=== PATIENT | female | born 1995 | race American Indian/Alaskan Native ===

== ENCOUNTER 2016-10-23 15:31 | Emergency (ER) | payer MEDICAID ==
[2016-10-23 15:49] VITALS: BP 139/84
[2016-10-23] MEDS ORDERED: NORCO 7.5/325 PO ONE (16:22)
--- NOTE | 2016-10-23 16:27 | Emergency Department Report ---
ED ENT HPI - General Chief complaint: Sore Throat Stated complaint: POSS STREP THROAT/SWOLLEN TONSILS Time Seen by Provider: 10/23/16 16:21 Source: patient Mode of arrival: Ambulatory Limitations: No Limitations - History of Present Illness Initial comments: 20-year-old -[place] female comes in for complaint of nonproductive cough sore throat and chills swollen glands in her throat and sinus drainage since Saturday. Patient denies any fever he does admit to chills she does admit to taking [id number] pain relief and drinking tea without minimal relief. She complains of headache off and on. He has no past medical history currently takes no medication and has no known drug allergies. MD complaint: sore throat, difficulty swallowing - Related Data Previous Rx's Medication Instructions Recorded Last Taken Type Cephalexin [Keflex] 500 mg PO QID #40 capsule 10/23/16 Unknown Rx Ibuprofen [Motrin 800 MG tab] 800 mg PO Q8HR PRN #30 tablet 10/23/16 Unknown Rx Allergies Allergy/AdvReac Type Severity Reaction Status Date / Time No Known Allergies Allergy Verified 10/23/16 15:44 ED Dental HPI - General Chief complaint: Sore Throat Stated complaint: POSS STREP THROAT/SWOLLEN TONSILS Time Seen by Provider: 10/23/16 16:21 Source: patient Mode of arrival: Ambulatory Limitations: No Limitations - Related Data Previous Rx's Medication Instructions Recorded Last Taken Type Cephalexin [Keflex] 500 mg PO QID #40 capsule 10/23/16 Unknown Rx Ibuprofen [Motrin 800 MG tab] 800 mg PO Q8HR PRN #30 tablet 10/23/16 Unknown Rx Allergies Allergy/AdvReac Type Severity Reaction Status Date / Time No Known Allergies Allergy Verified 10/23/16 15:44 ED Review of Systems ROS: Stated complaint: POSS STREP THROAT/SWOLLEN TONSILS Other details as noted in HPI Constitutional: chills Eyes: denies: eye pain, eye discharge, vision change ENT: ear pain, throat pain Respiratory: cough Cardiovascular: denies: chest pain, palpitations Endocrine: no symptoms reported Gastrointestinal: denies: abdominal pain, nausea, diarrhea Genitourinary: denies: urgency, dysuria, discharge Musculoskeletal: denies: back pain, joint swelling, arthralgia Skin: denies: rash, lesions Neurological: headache Psychiatric: denies: anxiety, depression ED Past Medical Hx - Past Medical History Previous Medical History?: No Hx Hypertension: No Hx Diabetes: No Hx Deep Vein Thrombosis: No Hx Renal Disease: No Hx Sickle Cell Disease: No Hx Seizures: No Hx Asthma: No Hx COPD: No Hx HIV: No - Surgical History Past Surgical History?: No - Social History Smoking Status: Never Smoker Substance Use Type: Alcohol - Medications Home Medications: Home Medications Medication Instructions Recorded Confirmed Last Taken Type Cephalexin [Keflex] 500 mg PO QID #40 capsule 10/23/16 Unknown Rx Ibuprofen [Motrin 800 MG tab] 800 mg PO Q8HR PRN #30 tablet 10/23/16 Unknown Rx ED Physical Exam - General Limitations: No Limitations General appearance: alert, in no apparent distress - Head Head exam: Present: atraumatic, normocephalic - Eye Eye exam: Present: normal appearance, EOMI - ENT ENT exam: Present: mucous membranes moist - Expanded ENT Exam Expanded TM/Canal exam: Bulging: Right TM, Loss of Landmarks: Right TM Throat exam: Positive: tonsillar erythema, tonsillomegaly, tonsillar exudate - Neck Neck exam: Present: tenderness, full ROM, lymphadenopathy - Respiratory Respiratory exam: Present: normal lung sounds bilaterally - Cardiovascular Cardiovascular Exam: Present: tachycardia, normal heart sounds - GI/Abdominal GI/Abdominal exam: Present: soft, tenderness. Absent: distended - Neurological Exam Neurological exam: Present: alert, oriented X3 ED Course Vital Signs 10/23/16 15:45 Temperature 98.4 F Pulse Rate 104 H Respiratory 19 Rate Blood Pressure 139/84 O2 Sat by Pulse 100 Oximetry ED Medical Decision Making - Medical Decision Making Patient has been evaluated by this provider fast track. Evaluation of patient' s strep test was negative concerns for possible gonorrhea of the pharynx. Will treat patient with ceftriaxone and discharged her on Keflex 500 mg 1 tablet by mouth 4 times a day for 10 days. Also given patient a prescription for ibuprofen 800 mg 1 tablet by mouth 3 times a day when necessary for pain. Discussed the patient to call back in 3-7 days to follow-up on her cultures of her sore throat. Patient verbalized understanding. Critical care attestation.: If time is entered above; I have spent that time in minutes in the direct care of this critically ill patient, excluding procedure time. ED Disposition Clinical Impression: Sorethroat Disposition: DISCHARGED TO HOME OR SELFCARE Is pt being admited?: No Does the pt Need Aspirin: No Condition: Stable Instructions: Pharyngitis (ED) Prescriptions: Cephalexin [Keflex] 500 mg PO QID #40 capsule Ibuprofen [Motrin 800 MG tab] 800 mg PO Q8HR PRN #30 tablet PRN Reason: Pain Referrals: PRIMARY CARE, [Primary Care Provider] - 3-5 Days Forms: Work/School Release Form(ED)
[2016-10-23] MEDS ORDERED: XYLOCAINE 1% MPF 5 mL INFILTRATI ONE (17:44)
[2016-10-23] MEDS ORDERED: ROCEPHIN IM ONE (17:44)
== END 2016-10-23 18:35 | disposition home or self-care (01) ==
LOC: ED 15:31
DX: J02.9 Acute pharyngitis, unspecified (principal)
CPT/HCPCS: 87116; 87430; 96372; 99283; J0696

== ENCOUNTER 2016-11-23 16:09 | Emergency (ER) | payer MEDICAID ==
[2016-11-23 17:05] LABS: Basophils % (Auto) 0.3 % (0.0-1.8); Eosinophils % (Auto) 2.2 % (0.0-4.3); Hematocrit 35.9 % (30.3-42.9); Hemoglobin 11.2 gm/dl (10.1-14.3); Mean Corpuscular HGB Conc 31 % (30-34); Platelet Count 338 K/mm3 (140-440); Red Blood Count 5.35 M/mm3 (3.65-5.03); Red Cell Distribution Width 15.1 % (13.2-15.2); White Blood Count 5.7 K/mm3 (4.5-11.0)
[2016-11-23 17:11] LABS: Anion Gap 20 mmol/L; Blood Urea Nitrogen 13 mg/dL (7-17); Calcium 9.4 mg/dL (8.4-10.2); Carbon Dioxide 23 mmol/L (22-30); Chloride 101.3 mmol/L (98-107); Glucose 77 mg/dL (65-100); Potassium 4.3 mmol/L (3.6-5.0); Sodium 140 mmol/L (137-145)
[2016-11-23 17:15] LABS: Mean Corpuscular Hemoglobin 21 pg (28-32); Mean Corpuscular Volume 67 fl (79-97)
[2016-11-23] MEDS ORDERED: TORADOL IM ONE (20:19)
--- NOTE | 2016-11-23 20:23 | Emergency Department Report ---
HPI - General Chief Complaint: Chest Pain Time Seen by Provider: 11/23/16 18:28 - HPI HPI: The patient is a 21-year-old female presents for evaluation of chest pain. The patient reports left-sided chest pain since 9 AM, tightness like in quality, 5/ 10 in severity, exacerbated with movement of the upper body. She says that she has experienced similar chest pains on and off for greater than 3 months. The patient denies fever, neck pain, parasthesias, dyspnea, cough, hemoptysis, palpitations, dizziness, syncope, unilateral leg swelling, calf muscle pain. Patient also denies cocaine or other stimulant use, oral contraception use, history of DVT or PE, recent immobilization, or history of recent surgery or cancer. ED Past Medical Hx - Past Medical History Hx Hypertension: No Hx Diabetes: No Hx Deep Vein Thrombosis: No Hx Renal Disease: No Hx Sickle Cell Disease: No Hx Seizures: No Hx Asthma: No Hx COPD: No Hx HIV: No Additional medical history: OBESITY. ANEMIA - Surgical History Past Surgical History?: No - Social History Smoking Status: Never Smoker Substance Use Type: Alcohol - Medications Home Medications: Home Medications Medication Instructions Recorded Confirmed Last Taken Type traMADol [Ultram 50 MG tab] 50 mg PO Q6HR PRN #15 tablet 11/23/16 Unknown Rx ED Review of Systems ROS: Stated complaint: CHEST TIGHTNESS/LIGHT HEADED Other details as noted in HPI Constitutional: denies: fever ENT: denies: throat or neck pain Respiratory: denies: cough, shortness of breath Cardiovascular: reports chest pain Endocrine: denies unexplained weight loss or gain Gastrointestinal: denies: abdominal pain, nausea Genitourinary: denies: dysuria Musculoskeletal: denies: leg swelling Skin: denies: rash Neurological: denies: headache Hematological/Lymphatic: denies: easy bleeding or easy bruising Psych: denies sadness or hopelessness Physical Exam - Physical Exam Vital Signs: Vital Signs 11/23/16 11/23/16 11/23/16 16:23 18:56 18:59 Temperature 97.9 F Pulse Rate 92 H 89 Respiratory 15 16 16 Rate Blood Pressure 133/87 Blood Pressure 113/68 [Left] O2 Sat by Pulse 98 100 100 Oximetry Physical Exam: General: well-nourished, well-developed, no acute distress Head: Normocephalic, atraumatic Eyes: normal sclera ENT: Mucous membranes are pink and moist Neck: trachea midline, neck supple, No neck stiffness, no cervical adenopathy Respiratory: Breath sounds equal bilaterally, no wheezing, rales, or rhonchi Cardio: S1 and S2 present, no murmurs, rubs, gallops, capillary refill is brisk Abdomen: Normoactive bowel sounds, soft abdomen, no rigidity, no guarding or rebound tenderness Musc: No pitting edema Skin: No rash Neuro: no facial drooping, normal speech Psych: Normal affect ED Course Vital Signs 11/23/16 11/23/16 11/23/16 16:23 18:56 18:59 Temperature 97.9 F Pulse Rate 92 H 89 Respiratory 15 16 16 Rate Blood Pressure 133/87 Blood Pressure 113/68 [Left] O2 Sat by Pulse 98 100 100 Oximetry ED Medical Decision Making - Lab Data Result diagrams: 11/23/16 16:32 11/23/16 16:32 - Medical Decision Making The patient was seen and examined by myself. The patient is placed on a clinical research monitor and continuous pulse ox. On initial evaluation, the patient was found to be in no distress. EKG was negative for findings suggestive of acute cardiac infarct. Labs and imaging are obtained. The patient is given an IM dose of Toradol for her pain. Chest x-ray is negative for pneumothorax, focal consolidation, pulmonary vascular congestion, pleural effusion, or other obvious acute cardiopulmonary disease process. Lab results were non-concerning including levels of troponin, WBC, hemoglobin, hematocrit, electrolytes, renal function. The patient was reevaluated and reported that their symptoms were markedly improved. As the patient has a MANDY risk score less than 2, and a well 's score less than 2, the patient is at low risk of ACS or pulmonary emboli etiology of their symptoms. The patient is stable for discharge with outpatient follow-up. The patient is given follow-up and return instructions. The patient expressed understanding and agreed with the plan. The patient is discharged in stable condition. Critical care attestation.: If time is entered above; I have spent that time in minutes in the direct care of this critically ill patient, excluding procedure time. ED Disposition Clinical Impression: Acute chest pain Disposition: DISCHARGED TO HOME OR SELFCARE Is pt being admited?: No Does the pt Need Aspirin: No Condition: Stable Instructions: Chest Pain (ED), Costochondritis (ED) Referrals: PRIMARY CARE, [Primary Care Provider] - 3-5 Days Time of Disposition: 20:20
[2016-11-23 21:52] VITALS: BP 108/63
--- NOTE | 2016-11-24 10:30 | XRay Report ---
AP CHEST: HISTORY: chest pain AP view of the chest demonstrates a normal mediastinal and cardiac contour with clear lungs and normal bony and soft tissue structures. IMPRESSION: Unremarkable AP chest.
== END 2016-11-23 21:45 | disposition home or self-care (01) ==
LOC: ED 16:09
DX: R07.89 Other chest pain (principal)
CPT/HCPCS: 36415; 71010; 80048; 84484; 85025; 93005; 93010; 96372; 99285; J1885

== ENCOUNTER 2016-12-20 10:20 | Emergency (ER) | payer SELFPAY ==
[2016-12-20 10:52] VITALS: BP 131/85
--- NOTE | 2016-12-20 13:11 | Emergency Department Report ---
Entered by ORIN ALVARENGA, acting as scribe for RAD LIMON NP. Earache (Pediatric) - HPI Chief Complaint: Earache Stated Complaint: LT EAR INFECTION/HEADACHE Time Seen by Provider: 12/20/16 12:09 Duration: 1 Week Location: Left (ear pain) Severity: Mild Symptoms: Yes URI, Yes Sore Throat, Yes Cough, No Trauma to EAC, No History of Moisture in Ear, No Fever, No Vomiting, No Shortness of Breath Other History: 21 year old female with no significant PMHx presents to the ED c/ o left ear ache and cold like symptoms for 1 week. Patient rates 5/10 in servierty. Patient reports rihonerra, nasal congestion, pressure in sinus pain, ear ache, cough, and sore throat, but denies fever, chills, SOB, chest pain, headache, weakness, numbness, and tingling, Patient reports that no one else is sick at [facility] and she does not a hx of ear infections. She currently works as a [employer]. ED Review of Systems ROS: Stated complaint: LT EAR INFECTION/HEADACHE Other details as noted in HPI Comment: All other systems reviewed and negative Constitutional: denies: chills, diaphoresis, fever, weakness Eyes: denies: eye pain, eye discharge, vision change ENT: ear pain (left ear), throat pain, congestion. denies: dental pain, hearing loss Respiratory: cough. denies: shortness of breath, wheezing Cardiovascular: denies: chest pain, palpitations Gastrointestinal: denies: abdominal pain, nausea, diarrhea Musculoskeletal: denies: back pain, joint swelling, arthralgia Skin: denies: rash, lesions Neurological: denies: headache, weakness, paresthesias Pediatric Past Medical History - Chronic Health Problems Hx Asthma: No Hx Diabetes: No Hx HIV: No Hx Renal Disease: No Hx Sickle Cell Disease: No Hx Seizures: No Additional medical history: OBESITY. ANEMIA Peds Earache exam - Exam General: Vital signs noted. No distress. Alert and acting appropriately. HEENT: Yes Pharyngeal Erythema, Yes Pharyngeal Exudates, Yes Rhinorrhea, Yes Maxillary Tenderness, No Conjuctival Injection, No Frontal Tenderness Ear: Right TM Erythema, Neither TM Bulge, Neither EAC Pain, Neither EAC Discharge, Neither Cerumen Impaction Peds Neck exam: Adenopathy: No, Supple: Yes Peds Lung exam: Good Air Exchange: Yes, Wheezes: No, Stridor: No, Cough: No, Nasal Flaring: No, Retractions: No, Use of Accessory Muscles: No Heart: Yes Regular, No Murmur Peds abdomen: Abdominal Tenderness: No, Peritoneal Signs: No, Normal Bowel Sounds: Yes, Distention: No Peds Skin Exam: Rash: No, Eczema: No Neurologic: Alert and oriented, no deficits. Musculoskeletal: Unremarkable. ED Course Vital Signs 12/20/16 10:49 Temperature 98.2 F Pulse Rate 80 Respiratory 20 Rate Blood Pressure 131/85 O2 Sat by Pulse 97 Oximetry ED Medical Decision Making - Medical Decision Making pt presents for ear pain bilat x 1 wee, exam bilat tm erythema with effusion . bilat sinus pain maxillary, pharynx: bilat moderat tonsilarmegaly, erythema mild exudate uvula midline, airway is patent no wheezing no stridor no lujan, plan tx for sinusitis pt will follow up with primary care doctor if symptoms not improved pt verbalized agreement and understanding with discharge plan. Critical care attestation.: If time is entered above; I have spent that time in minutes in the direct care of this critically ill patient, excluding procedure time. ED Disposition Clinical Impression: Sinusitis Qualifiers: Sinusitis location: maxillary Chronicity: acute Recurrence: non-recurrent Qualified Code(s): J01.00 - Acute maxillary sinusitis, unspecified AOM (acute otitis media) Qualifiers: Otitis media type: serous Laterality: bilateral Recurrence: not specified as recurrent Qualified Code(s): H65.03 - Acute serous otitis media, bilateral URI (upper respiratory infection) Qualifiers: URI type: acute nasopharyngitis (common cold) Qualified Code(s): J00 - Acute nasopharyngitis [common cold] Disposition: DC- TO HOME OR SELFCARE Is pt being admited?: No Does the pt Need Aspirin: No Condition: Good Instructions: Sinusitis (ED) Prescriptions: Amoxicillin/K Clav Tab [Augmentin 875 mg] 1 tab PO Q12HR #20 tab Fluticasone [Flonase] 1 spray NS QDAY #1 bottle Ibuprofen [Motrin 800 MG tab] 800 mg PO Q8HR PRN #30 tablet PRN Reason: Pain Loratadine 10 mg PO DAILY #30 tablet Referrals: PRIMARY CARE, [Primary Care Provider] - 3-5 Days Forms: Work/School Release Form(ED) Time of Disposition: 13:11 This documentation as recorded by the LYLE cat PEARL,accurately reflects the service I personally performed and the decisions made by me,RAD LIMON NP.
== END 2016-12-20 13:34 | disposition home or self-care (01) ==
LOC: ED 10:20
DX: J01.00 Acute maxillary sinusitis, unspecified (principal); H65.03 Acute serous otitis media, bilateral; J00 Acute nasopharyngitis [common cold]; D64.9 Anemia, unspecified
CPT/HCPCS: 99282

== ENCOUNTER 2017-03-07 12:10 | Emergency (ER) | payer SELFPAY ==
[2017-03-07 14:21] LABS: Basophils % (Auto) 0.3 % (0.0-1.8); Eosinophils % (Auto) 1.8 % (0.0-4.3); Hematocrit 37.6 % (30.3-42.9); Hemoglobin 11.9 gm/dl (10.1-14.3); Mean Corpuscular HGB Conc 32 % (30-34); Platelet Count 288 K/mm3 (140-440); Red Blood Count 5.57 M/mm3 (3.65-5.03); Red Cell Distribution Width 15.8 % (13.2-15.2)
[2017-03-07 14:30] LABS: Mean Corpuscular Hemoglobin 21 pg (28-32); Mean Corpuscular Volume 68 fl (79-97)
[2017-03-07 14:33] LABS: Alanine Aminotransferase 35 units/L (7-56); Albumin 4.7 g/dL (3.9-5); Albumin/Globulin Ratio 1.3 %; Alkaline Phosphatase 81 units/L (35-129); Anion Gap 20 mmol/L; Bilirubin,Total < 0.20 mg/dL (0.1-1.2); Blood Urea Nitrogen 11 mg/dL (7-17); Calcium 9.6 mg/dL (8.4-10.2); Carbon Dioxide 24 mmol/L (22-30); Chloride 99.9 mmol/L (98-107); Glucose 89 mg/dL (65-100); Lipase 22 units/L (13-60); Potassium 4.4 mmol/L (3.6-5.0); Sodium 139 mmol/L (137-145); Total Protein 8.2 g/dL (6.3-8.2)
[2017-03-07 15:06] LABS: Bilirubin,Urine NEG (Negative); Blood,Urine NEG (Negative); Ketones,Urine TR mg/dL (Negative); Leukocyte Esterase,Urine SM (Negative); Mucus,Urine 2+ /HPF; Nitrite,Urine NEG (Negative); Protein,Urine <15 mg/dL mg/dL (Negative); Urobilinogen,Urine < 2.0 mg/dL (<2.0)
--- NOTE | 2017-03-07 18:28 | Emergency Department Report ---
HPI - General Chief Complaint: Abdominal Pain Time Seen by Provider: 03/07/17 18:08 - HPI HPI: Room 37 The patient is a 21-year-old female presenting with a chief complaint abdominal pressure. The patient states for the past 2 days she's had pressure in the epigastric region. The patient states she's been constipated for one week. The patient and she took Pepto-Bismol castor oil yesterday and had a small bowel movement which did relieve some of the abdominal pressure. Patient states the pressure has returned. Patient denies any history of fever with does admit to nausea without vomiting. The patient also states has past 3 days she has been able to express a clear serous liquid from her nipples bilaterally. Location: [see above] Duration: [see above] Quality: Pressure Severity: Moderate Modifying factors: [see above] Context: [see above] Mode of transportation: Unknown ED Past Medical Hx - Past Medical History Previous Medical History?: Yes Additional medical history: OBESITY. ANEMIA - Surgical History Past Surgical History?: No Additional Surgical History: IUD - Social History Smoking Status: Never Smoker Substance Use Type: None (denies illicit drug use), Alcohol (occasional) - Medications Home Medications: Home Medications Medication Instructions Recorded Confirmed Last Taken Type traMADol [Ultram 50 MG tab] 50 mg PO Q6HR PRN #15 tablet 11/23/16 Unknown Rx Amoxicillin/K Clav Tab [Augmentin 1 tab PO Q12HR #20 tab 12/20/16 Unknown Rx 875 mg] Fluticasone [Flonase] 1 spray NS QDAY #1 bottle 12/20/16 Unknown Rx Ibuprofen [Motrin 800 MG tab] 800 mg PO Q8HR PRN #30 tablet 12/20/16 Unknown Rx Loratadine 10 mg PO DAILY #30 tablet 12/20/16 Unknown Rx Docusate Sodium [Colace] 100 mg PO BID PRN #60 capsule 03/07/17 Unknown Rx ED Review of Systems ROS: Stated complaint: ABDOMINAL PAIN Other details as noted in HPI Comment: All other systems reviewed and negative Constitutional: denies: chills, fever Eyes: denies: eye pain, eye discharge, vision change ENT: denies: ear pain, throat pain Respiratory: denies: cough, shortness of breath, wheezing Cardiovascular: denies: chest pain, palpitations Endocrine: no symptoms reported Gastrointestinal: abdominal pain, nausea. denies: vomiting Genitourinary: other (nipple discharge) Musculoskeletal: denies: back pain, joint swelling, arthralgia Skin: denies: rash, lesions Neurological: denies: headache, weakness, paresthesias Psychiatric: denies: anxiety, depression Hematological/Lymphatic: denies: easy bleeding, easy bruising Physical Exam - Physical Exam Vital Signs: Vital Signs 03/07/17 13:50 Temperature 98 F Pulse Rate 80 Respiratory 20 Rate Blood Pressure 128/95 O2 Sat by Pulse 100 Oximetry Physical Exam: GENERAL: The patient is well-developed well-nourished female lying on stretcher not appearing to be in acute distress. [] HEENT: Normocephalic. Atraumatic. Extraocular motions are intact. Patient has moist mucous membranes. NECK: Supple. Trachea midline CHEST/LUNGS: Clear to auscultation. There is no respiratory distress noted. BREASTS: No external signs of infection. No erythema or dimpling. Patient is able to express a scant amount of a clear serous fluid from the right nipple HEART/CARDIOVASCULAR: Regular. There is no tachycardia. There is no gallop rub or murmur. ABDOMEN: Abdomen is soft, nontender. Patient has normal bowel sounds. There is no abdominal distention. SKIN: There is no rash. There is no edema. There is no diaphoresis. NEURO: The patient is awake, alert, and oriented. The patient is cooperative. The patient has normal speech MUSCULOSKELETAL: There is no evidence of acute injury. ED Course Vital Signs 03/07/17 13:50 Temperature 98 F Pulse Rate 80 Respiratory 20 Rate Blood Pressure 128/95 O2 Sat by Pulse 100 Oximetry ED Medical Decision Making - Lab Data Result diagrams: 03/07/17 14:01 03/07/17 14:01 Laboratory Tests 03/07/17 03/07/17 03/07/17 14:01 14:01 14:50 WBC 5.0 RBC 5.57 H Hgb 11.9 Hct 37.6 MCV 68 L MCH 21 L MCHC 32 RDW 15.8 H Plt Count 288 Lymph % (Auto) 31.8 [place] % (Auto) 9.1 H Eos % (Auto) 1.8 Baso % (Auto) 0.3 Lymph # 1.6 [place] # 0.5 Eos # 0.1 Baso # 0.0 Seg Neutrophils % 57.0 Seg Neutrophils # 2.9 Sodium 139 Potassium 4.4 Chloride 99.9 Carbon Dioxide 24 Anion Gap 20 BUN 11 Creatinine 0.5 L Estimated GFR > 60 BUN/Creatinine Ratio 22.00 Glucose 89 Calcium 9.6 Total Bilirubin < 0.20 AST 27 ALT 35 Alkaline Phosphatase 81 Total Protein 8.2 Albumin 4.7 Albumin/Globulin Ratio 1.3 Lipase 22 Urine Color Yellow Urine Turbidity Slightly-cloudy Urine pH 6.0 Ur Specific [place] 1.024 Urine Protein <15 mg/dl Urine Glucose (UA) Neg Urine Ketones Tr Urine Blood Neg Urine Nitrite Neg Urine Bilirubin Neg Urine Urobilinogen < 2.0 Ur Leukocyte Esterase Sm Urine WBC (Auto) 1.0 Urine RBC (Auto) 2.0 U Epithel Cells (Auto) 13.0 Urine Mucus 2+ Urine HCG, Qual Negative - Radiology Data Radiology results: image reviewed (two-view abdominal x-ray) interpreted by me: Two-view abdominal [id number] bowel gas pattern. No evidence of small bowel structure - Differential Diagnosis constipation, mastitis, , Critical care attestation.: If time is entered above; I have spent that time in minutes in the direct care of this critically ill patient, excluding procedure time. ED Disposition Clinical Impression: Constipation, Bilateral nipple discharge Disposition: - TO HOME OR SELFCARE Is pt being admited?: No Does the pt Need Aspirin: No Condition: Stable Instructions: Abdominal Pain (ED) Additional Instructions: Return to the emergency department immediately should you develop worsening symptoms, fever, inability to tolerate food or liquid or any other concerns. Prescriptions: Docusate Sodium [Colace] 100 mg PO BID PRN #60 capsule PRN Reason: Constipation Referrals: LEILA SOLIS MD [Staff Physician] - 3-5 Days (Dr. Solis is an CLINICAL PRODUCT MANAGER. Please follow up with him for further evaluation of your nipple discharge) MARCIAL ELIAS MD [Staff Physician] - 3-5 Days (Dr. Elias is a presentation designer. Please follow up with him for further evaluation of your chronic constipation) CAMRYN SOSA MD [Staff Physician] - 3-5 Days (Dr. Sosa is a primary physician. Please follow up with him to be established as a patient) Time of Disposition: 18:57
[2017-03-07 18:33] VITALS: BP 143/91
--- NOTE | 2017-03-07 19:50 | XRay Report ---
FINAL REPORT EXAM: XR ABDOMEN 2V HISTORY: constipation TECHNIQUE: Supine and upright abdomen PRIORS: None. FINDINGS: Moderate amount of stool and gas present within the colon. No evidence of colonic or small bowel dilatation. No signs of free air. No abnormal calcifications are identified. IUD noted within the pelvis IMPRESSION: Nonobstructive bowel gas pattern. No acute abnormality seen.
== END 2017-03-07 19:10 | disposition home or self-care (01) ==
LOC: ED 12:10
DX: N64.52 Nipple discharge (principal); K59.00 Constipation, unspecified
CPT/HCPCS: 36415; 74020; 80053; 81001; 81025; 83690; 85025; 99284

== ENCOUNTER 2017-06-02 13:36 | Emergency (ER) | payer MEDICAID, OTHER ==
[2017-06-02 14:30] VITALS: BP 134/82
--- NOTE | 2017-06-02 18:06 | Emergency Department Report ---
- General Chief complaint: Wound/Laceration Stated complaint: CUT ON UPPER LIP Time Seen by Provider: 06/02/17 17:04 Source: patient Mode of arrival: Ambulatory Limitations: No Limitations - History of Present Illness Initial comments: This is a 21-year-old female nontoxic, well nourished in appearance, no acute signs of distress presents to the ED with c/o of lip abrasion x1 day. Patient stated she was at a bus and tripped and hit the pole and bite her lip. Patient denies any bleeding. Patient denies any chest pain, shortness of breathe, fever , chills, headache, nausea, vomiting, blurry vision. Patient denies any head trauma or syncope. Patient denies any allergies. PMH includes obesity and anemia. MD complaint: other (abrasion) -: Gradual, days(s) (1) Tetanus Up to Date: yes (2014) Severity: mild Severity scale (0 -10): 8 Quality: aching Consistency: constant Improves with: none Worsens with: none Context: none Associated symptoms: denies other symptoms Treatments Prior to Arrival: none - Related Data Previous Rx's Medication Instructions Recorded Last Taken Type traMADol [Ultram 50 MG tab] 50 mg PO Q6HR PRN #15 tablet 11/23/16 Unknown Rx Amoxicillin/K Clav Tab [Augmentin 1 tab PO Q12HR #20 tab 12/20/16 Unknown Rx 875 mg] Fluticasone [Flonase] 1 spray NS QDAY #1 bottle 12/20/16 Unknown Rx Ibuprofen [Motrin 800 MG tab] 800 mg PO Q8HR PRN #30 tablet 12/20/16 Unknown Rx Loratadine 10 mg PO DAILY #30 tablet 12/20/16 Unknown Rx Docusate Sodium [Colace] 100 mg PO BID PRN #60 capsule 03/07/17 Unknown Rx Amoxicillin/K Clav Tab [Augmentin 1 each PO Q12HR #20 tablet 06/02/17 Unknown Rx 500 MG TAB] Allergies Allergy/AdvReac Type Severity Reaction Status Date / Time No Known Allergies Allergy Verified 11/23/16 16:29 Abscess Boil HPI - HPI Chief Complaint: Wound/Laceration Stated Complaint: CUT ON UPPER LIP Time Seen by Provider: 06/02/17 17:04 Home Medications: Previous Rx's Medication Instructions Recorded Last Taken Type traMADol [Ultram 50 MG tab] 50 mg PO Q6HR PRN #15 tablet 11/23/16 Unknown Rx Amoxicillin/K Clav Tab [Augmentin 1 tab PO Q12HR #20 tab 12/20/16 Unknown Rx 875 mg] Fluticasone [Flonase] 1 spray NS QDAY #1 bottle 12/20/16 Unknown Rx Ibuprofen [Motrin 800 MG tab] 800 mg PO Q8HR PRN #30 tablet 12/20/16 Unknown Rx Loratadine 10 mg PO DAILY #30 tablet 12/20/16 Unknown Rx Docusate Sodium [Colace] 100 mg PO BID PRN #60 capsule 03/07/17 Unknown Rx Amoxicillin/K Clav Tab [Augmentin 1 each PO Q12HR #20 tablet 06/02/17 Unknown Rx 500 MG TAB] Allergies/Adverse Reactions: Allergies Allergy/AdvReac Type Severity Reaction Status Date / Time No Known Allergies Allergy Verified 11/23/16 16:29 ED Review of Systems ROS: Stated complaint: CUT ON UPPER LIP Other details as noted in HPI Constitutional: denies: chills, fever Eyes: denies: eye pain, eye discharge, vision change ENT: denies: ear pain, throat pain Respiratory: denies: cough, shortness of breath, wheezing Cardiovascular: denies: chest pain, palpitations Endocrine: no symptoms reported Gastrointestinal: denies: abdominal pain, nausea, diarrhea Genitourinary: denies: urgency, dysuria, discharge Musculoskeletal: denies: back pain, joint swelling, arthralgia Skin: other (abrasion of inner upper lip). denies: rash, lesions Neurological: denies: headache, weakness, paresthesias Psychiatric: denies: anxiety, depression Hematological/Lymphatic: denies: easy bleeding, easy bruising ED Past Medical Hx - Past Medical History Previous Medical History?: Yes Additional medical history: OBESITY. ANEMIA - Surgical History Past Surgical History?: Yes Additional Surgical History: IUD - Social History Smoking Status: Current Every Day Smoker Substance Use Type: Marijuana - Medications Home Medications: Home Medications Medication Instructions Recorded Confirmed Last Taken Type traMADol [Ultram 50 MG tab] 50 mg PO Q6HR PRN #15 tablet 11/23/16 Unknown Rx Amoxicillin/K Clav Tab [Augmentin 1 tab PO Q12HR #20 tab 12/20/16 Unknown Rx 875 mg] Fluticasone [Flonase] 1 spray NS QDAY #1 bottle 12/20/16 Unknown Rx Ibuprofen [Motrin 800 MG tab] 800 mg PO Q8HR PRN #30 tablet 12/20/16 Unknown Rx Loratadine 10 mg PO DAILY #30 tablet 12/20/16 Unknown Rx Docusate Sodium [Colace] 100 mg PO BID PRN #60 capsule 03/07/17 Unknown Rx Amoxicillin/K Clav Tab [Augmentin 1 each PO Q12HR #20 tablet 06/02/17 Unknown Rx 500 MG TAB] ED Physical Exam - General Limitations: No Limitations General appearance: alert, in no apparent distress - Head Head exam: Present: atraumatic, normocephalic, normal inspection - Eye Eye exam: Present: normal appearance, PERRL, EOMI. Absent: scleral icterus, conjunctival injection, nystagmus, periorbital swelling, periorbital tenderness Pupils: Present: normal accommodation - ENT ENT exam: Present: normal exam, normal orophraynx, mucous membranes moist, TM's normal bilaterally, normal external ear exam - Neck Neck exam: Present: normal inspection, full ROM. Absent: tenderness, meningismus, lymphadenopathy, thyromegaly - Respiratory Respiratory exam: Present: normal lung sounds bilaterally. Absent: respiratory distress, wheezes, rales, rhonchi, stridor, chest wall tenderness, accessory muscle use, decreased breath sounds, prolonged expiratory - Cardiovascular Cardiovascular Exam: Present: regular rate, normal rhythm, normal heart sounds. Absent: bradycardia, tachycardia, irregular rhythm, systolic murmur, diastolic murmur, rubs, gallop - GI/Abdominal GI/Abdominal exam: Present: soft, normal bowel sounds. Absent: distended, tenderness, guarding, rebound, rigid, diminished bowel sounds - Rectal Rectal exam: Present: deferred - Extremities Exam Extremities exam: Present: normal inspection, full ROM, normal capillary refill. Absent: tenderness, pedal edema, joint swelling, calf tenderness - Back Exam Back exam: Present: normal inspection, full ROM. Absent: tenderness, CVA tenderness (R), CVA tenderness (L), muscle spasm, paraspinal tenderness, vertebral tenderness, rash noted - Neurological Exam Neurological exam: Present: alert, oriented X3, CN II-XII intact, normal gait, reflexes normal - Psychiatric Psychiatric exam: Present: normal affect, normal mood - Skin Skin exam: Present: warm, dry, intact, normal color. Absent: rash - Other Other exam information: 1 cm superficial abrasion to the inner upper lip. No break in skin. No swelling or abscess noted. ED Course Vital Signs 06/02/17 14:26 Temperature 97.8 F Pulse Rate 83 Respiratory 18 Rate Blood Pressure 134/82 O2 Sat by Pulse 100 Oximetry - Reevaluation(s) Reevaluation #1: 06/02/17 18:07 Patient is speaking in full sentences with no signs of distress noted. ED Medical Decision Making - Medical Decision Making This is a 21-year-old female that presents with abrasion to the inner lip. Patient is stable and was examined by me. Patient is UTD with tetanus in 2014. Patient is discharged with augmentin. Patient was instructed to Follow-up with a primary care doctor in 3-5 days or if symptoms worsen and continue return to emergency room as soon as possible. At time time of discharge, the patient does not seem toxic or ill in appearance. No acute signs of distress noted. Patient agrees to discharge treatment plan of care. No further questions noted by the patient. Critical care attestation.: If time is entered above; I have spent that time in minutes in the direct care of this critically ill patient, excluding procedure time. ED Disposition Clinical Impression: Abrasion Disposition: DC-01 TO HOME OR SELFCARE Is pt being admited?: No Does the pt Need Aspirin: No Condition: Stable Instructions: Abrasion (ED), Amoxicillin/Clavulanate Potassium (By mouth) Additional Instructions: Follow-up with a primary care doctor in 3-5 days or if symptoms worsen and continue return to emergency room as soon as possible. Prescriptions: Amoxicillin/K Clav Tab [Augmentin 500 MG TAB] 1 each PO Q12HR #20 tablet Referrals: PRIMARY CAREMD [Primary Care Provider] - 3-5 Days SOHAM GIBSON MD [Staff Physician] - 3-[address] [facility] [Outside] - 3-5 Days [facility] [Outside] - 3-5 Days Forms: Work/School Release Form(ED)
== END 2017-06-02 18:25 | disposition home or self-care (01) ==
LOC: ED 13:36
DX: S00.511A Abrasion of lip, initial encounter (principal); D64.9 Anemia, unspecified; F17.200 Nicotine dependence, unspecified, uncomplicated; F12.10 Cannabis abuse, uncomplicated; E66.9 Obesity, unspecified; W45.8XXA Other foreign body or object entering through skin, initial encounter; Y93.89 Activity, other specified; Y92.89 Other specified places as the place of occurrence of the external cause; Y99.8 Other external cause status
CPT/HCPCS: 99282

== ENCOUNTER 2017-08-24 17:08 | Emergency (ER) | payer MEDICAID ==
[2017-08-24 17:16] VITALS: BP 118/78
--- NOTE | 2017-08-24 20:31 | Emergency Department Report ---
HPI - General Chief Complaint: Shoulder Injury Time Seen by Provider: 08/24/17 19:15 - HPI HPI: 21-year-old -[place] female states she was at [facility], went to the room to try on close, then some wood material fell on her right shoulder. Complains of mild discomfort with range of motion, but no swelling, no redness. ED Past Medical Hx - Past Medical History Previous Medical History?: No Hx Hypertension: No Hx CVA: No Additional medical history: OBESITY. ANEMIA - Surgical History Additional Surgical History: IUD - Social History Smoking Status: Never Smoker Substance Use Type: None - Medications Home Medications: Home Medications Medication Instructions Recorded Confirmed Last Taken Type traMADol [Ultram 50 MG tab] 50 mg PO Q6HR PRN #15 tablet 11/23/16 Unknown Rx Amoxicillin/K Clav Tab [Augmentin 1 tab PO Q12HR #20 tab 12/20/16 Unknown Rx 875 mg] Fluticasone [Flonase] 1 spray NS QDAY #1 bottle 12/20/16 Unknown Rx Loratadine 10 mg PO DAILY #30 tablet 12/20/16 Unknown Rx Docusate Sodium [Colace] 100 mg PO BID PRN #60 capsule 03/07/17 Unknown Rx Amoxicillin/K Clav Tab [Augmentin 1 each PO Q12HR #20 tablet 06/02/17 Unknown Rx 500 MG TAB] Ibuprofen [Motrin 800 MG tab] 800 mg PO Q8HR PRN #30 tablet 08/24/17 Unknown Rx ED Review of Systems ROS: Stated complaint: SHOULDER PAIN Other details as noted in HPI Comment: All other systems reviewed and negative Constitutional: no symptoms reported Eyes: as per HPI Musculoskeletal: arthralgia, myalgia Physical Exam - Physical Exam Vital Signs: Vital Signs 08/24/17 17:12 Temperature 97.6 F Pulse Rate 92 H Respiratory 18 Rate Blood Pressure 118/78 O2 Sat by Pulse 100 Oximetry Physical Exam: Gen. alert and oriented 3 in no distress Head atraumatic normocephalic Eyes PERR LA EOMI Chest regular rate and rhythm normal S1-S2 lungs clear bilaterally Abdomen soft nondistended Back no point tenderness paravertebral tenderness Neuro no focal deficit. Psych normal mood. Extremity: Right shoulder tenderness with range of motion. ED Course Vital Signs 08/24/17 17:12 Temperature 97.6 F Pulse Rate 92 H Respiratory 18 Rate Blood Pressure 118/78 O2 Sat by Pulse 100 Oximetry Critical care attestation.: If time is entered above; I have spent that time in minutes in the direct care of this critically ill patient, excluding procedure time. ED Disposition Clinical Impression: Right shoulder strain Qualifiers: Encounter type: initial encounter Qualified Code(s): S46.911A - Strain of unspecified muscle, fascia and tendon at shoulder and upper arm level, right arm , initial encounter Disposition: DC- TO HOME OR SELFCARE Is pt being admited?: No Does the pt Need Aspirin: No Condition: Stable Prescriptions: Ibuprofen [Motrin 800 MG tab] 800 mg PO Q8HR PRN #30 tablet PRN Reason: Pain
--- NOTE | 2017-08-24 20:53 | XRay Report ---
FINAL REPORT EXAM: XR SPINE CERVICAL 2-3V HISTORY: neck pain /ceiling tile fell on head TECHNIQUE: AP, lateral, and odontoid views of the cervical spine PRIORS: None. FINDINGS: Mild superior endplate compression involving to C6 anteriorly on the lateral view only. There is a spur in this region anteriorly and may be remote. However, she CT is recommended to exclude fracture. The other vertebral body heights and disc spaces are well maintained. There is reversal of normal cervical curvature centered around C5-C6. Findings are likely due to muscle spasm. No prevertebral soft tissue swelling is seen. The odontoid is intact. IMPRESSION: 1. mild superior endplate narrowing of C6 anteriorly. CT is recommended. 2. Reversal of cervical curvature is likely due to muscle spasm.
--- NOTE | 2017-08-24 20:54 | XRay Report ---
FINAL REPORT EXAM: XR SHOULDER 2+V RT HISTORY: rt shoulder pain/ ceiling tile fell TECHNIQUE: AP, Y, and oblique views of the right shoulder PRIORS: None. FINDINGS: There is no evidence of acute fracture or dislocation. Joint spaces are maintained and bony mineralization is normal. Soft tissues are unremarkable. IMPRESSION: No acute abnormality identified in the right shoulder.
== END 2017-08-24 20:45 | disposition home or self-care (01) ==
LOC: ED 17:08
DX: S46.911A Strain of unspecified muscle, fascia and tendon at shoulder and upper arm level, right arm, initial encounter (principal); W18.30XA Fall on same level, unspecified, initial encounter; Y93.89 Activity, other specified; Y92.89 Other specified places as the place of occurrence of the external cause; Y99.8 Other external cause status
CPT/HCPCS: 72040

== ENCOUNTER 2018-11-25 18:19 | Emergency (ER) | payer MEDICAID ==
[2018-11-25 18:28] VITALS: BP 124/85
--- NOTE | 2018-11-25 18:29 | Emergency Department Report ---
Chief Complaint: Urogenital-Female Stated Complaint: UTI/YEST INFECTION/BACK PAIN Time Seen by Provider: 11/25/18 18:26 - HPI History of Present Illness: This is a 23 y.o. F. that presents to the ER with left flank pain and vaginal discharge for 3-4 days. Admits to urinary frequency. Denies dysuria LMP 10/22/2018 - Exam Vital Signs: Vital Signs 11/25/18 18:26 Temperature 97.9 F Pulse Rate 102 H Respiratory 18 Rate Blood Pressure 124/85 O2 Sat by Pulse 96 Oximetry MSE screening note: Focused history and physical exam performed. Due to findings the following was ordered: This initial assessment/diagnostic orders/clinical plan/treatment(s) is/are subject to change based on patient's health status, clinical progression and re- assessment by fellow clinical providers in the ED. Further treatment and workup at subsequent clinical providers discretion. Patient/guardians urged not to elope from the ED as their condition may be serious if not clinically assessed and managed. Initial orders include: UA, hCG, wet prep ACC for further evaluation ED Disposition for MSE Condition: Stable
[2018-11-25 21:38] LABS: Bilirubin,Urine NEG (Negative); Blood,Urine SM (Negative); Color,Urine Yellow (Yellow); Mucus,Urine 2+ /HPF; Urobilinogen,Urine < 2.0 mg/dL (<2.0)
[2018-11-25 21:49] LABS: HCG Qualitative,Urine Negative (Negative)
== END 2018-11-25 22:00 | disposition left against medical advice (07) ==
LOC: ED 18:19
DX: R10.9 Unspecified abdominal pain (principal); Z53.21 Procedure and treatment not carried out due to patient leaving prior to being seen by health care provider
CPT/HCPCS: 81001; 81025

== ENCOUNTER 2018-11-28 19:54 | Emergency (ER) | payer MEDICAID ==
--- NOTE | 2018-11-28 20:05 | Event Note ---
ED Screening Note ED Screening Note: pt presents with left upper abd pain x 1 week no N/V/D increased flatulence last BM yesterday states it was difficult to go +frequency no dysuria LNMP: october 22 PMHx anemia no allergies to meds +smoker +marijuana +occ drinker This initial assessment/diagnostic orders/clinical plan/treatment(s) is/are sub ject to change based on patients health status, clinical progression and re- assessment by fellow clinical providers in the ED. Further treatment and workup at subsequent clinical providers discretion. Patient/guardian urged not to elope from the ED as their condition may be serious if not clinically assessed and managed. Initial orders include: labs, UA, xr abd
[2018-11-28 20:07] VITALS: BP 130/83
[2018-11-28 20:26] LABS: Basophils % (Auto) 0.5 % (0.0-1.8); Eosinophils # (Auto) 0.1 K/mm3 (0.0-0.4); Eosinophils % (Auto) 1.6 % (0.0-4.3); Hematocrit 34.2 % (30.3-42.9); Hemoglobin 11.3 gm/dl (10.1-14.3); Lymphocytes # (Auto) 2.3 K/mm3 (1.2-5.4); Lymphocytes % (Auto) 31.5 % (13.4-35.0); Mean Corpuscular HGB Conc 33 % (30-34); Mean Corpuscular Volume 71 fl (79-97); Monocytes # (Auto) 0.5 K/mm3 (0.0-0.8); Monocytes % (Auto) 6.6 % (0.0-7.3); Platelet Count 317 K/mm3 (140-440); Red Blood Count 4.83 M/mm3 (3.65-5.03); Red Cell Distribution Width 15.8 % (13.2-15.2)
[2018-11-28 20:38] LABS: Bilirubin,Urine NEG (Negative); Blood,Urine LG (Negative); Color,Urine Yellow (Yellow); Mucus,Urine 1+ /HPF; Protein,Urine <15 mg/dL mg/dL (Negative); Urobilinogen,Urine < 2.0 mg/dL (<2.0)
[2018-11-28 20:41] LABS: RBC,Urine > 182.0 /HPF (0.0-6.0)
[2018-11-28 20:54] LABS: Alanine Aminotransferase 26 units/L (7-56); Albumin 4.4 g/dL (3.9-5); BUN/Creatinine Ratio 24; Blood Urea Nitrogen 17 mg/dL (7-17); Calcium 9.6 mg/dL (8.4-10.2); Hemolysis Index 5
--- NOTE | 2018-11-28 21:23 | Emergency Department Report ---
ED Abdominal Pain HPI - General Chief Complaint: Abdominal Pain Stated Complaint: ABD PAIN Time Seen by Provider: 11/28/18 21:03 Source: patient Mode of arrival: Ambulatory Limitations: No Limitations - History of Present Illness Initial Comments: Patient is a 23-year-old female that presents emergency room with complaints of upper abdominal pain. Patient states her pain started a week ago. Patient denies nausea vomiting diarrhea. Patient states she's had a long history of constipation. Patient states she recently saw a zipper measurer and they're going to do a colonoscopy. Patient states that she had a bowel movement today but she had to strain a lot for her to come out. Patient denies blood in her stool. Patient denies fatigue. Patient denies chest pain. Patient denies shortness of breath. Patient denies fever and chills. She states that she is getting ready to start her period. MD Complaint: abdominal pain -: Sudden, week(s) Location: epigastric Radiation: none Migration to: no migration Severity scale (0 -10): 6 Quality: aching, fullness Consistency: constant Improves With: rest Worsens With: eating, movement Associated Symptoms: constipation. denies: nausea, vomiting, diarrhea, fever, chills, dysuria, hematemesis, hematochezia, melena, hematuria, anorexia, syncope - Related Data LMP (females 10-50): this week Previous Rx's Medication Instructions Recorded Last Taken Type traMADol [Ultram 50 MG tab] 50 mg PO Q6HR PRN #15 tablet 11/23/16 Unknown Rx Fluticasone [Flonase] 1 spray NS QDAY #1 bottle 12/20/16 Unknown Rx Loratadine 10 mg PO DAILY #30 tablet 12/20/16 Unknown Rx Docusate Sodium [Colace] 100 mg PO BID PRN #60 capsule 03/07/17 Unknown Rx Amoxicillin/K Clav Tab [Augmentin 1 each PO Q12HR #20 tablet 06/02/17 Unknown Rx 500 MG TAB] Amoxicillin/K Clav Tab [Augmentin 1 tab PO Q12HR #20 tab 05/27/18 Unknown Rx 875MG TAB] Ibuprofen [Motrin 800 MG tab] 800 mg PO Q8HR PRN #30 tablet 05/27/18 Unknown Rx Fluticasone [Flonase] 1 spray NS QDAY 30 Days #1 bottle 10/13/18 Unknown Rx Loratadine 10 mg PO DAILY 30 Days #30 capsule 10/13/18 Unknown Rx Esomeprazole Magnesium [NexIUM] 40 mg PO QDAY 30 Days #30 11/28/18 Unknown Rx capsule. Magnesium Citrate [Citrate of 300 ml PO ONCE #1 solution 11/28/18 Unknown Rx Magnesia] Sennosides/Docusate [Senokot S] 1 each PO Q12HR 15 Days #30 tab 11/28/18 Unknown Rx Allergies Allergy/AdvReac Type Severity Reaction Status Date / Time No Known Allergies Allergy Verified 11/25/18 18:21 ED Review of Systems ROS: Stated complaint: ABD PAIN Other details as noted in HPI Constitutional: denies: chills, fever Eyes: denies: eye pain, eye discharge, vision change ENT: denies: ear pain, throat pain Respiratory: denies: cough, shortness of breath, wheezing Cardiovascular: denies: chest pain, palpitations Endocrine: no symptoms reported Gastrointestinal: abdominal pain, constipation. denies: nausea, vomiting, diarrhea Genitourinary: denies: urgency, dysuria, discharge Musculoskeletal: denies: back pain, joint swelling, arthralgia Skin: denies: rash, lesions Neurological: denies: headache, weakness, paresthesias Psychiatric: denies: anxiety, depression Hematological/Lymphatic: denies: easy bleeding, easy bruising ED Past Medical Hx - Past Medical History Previous Medical History?: Yes Hx Hypertension: No Hx CVA: No Additional medical history: anemia - Surgical History Past Surgical History?: Yes Additional Surgical History: IUD - Family History Family history: no significant - Social History Smoking Status: Current Every Day Smoker Substance Use Type: Marijuana - Medications Home Medications: Home Medications Medication Instructions Recorded Confirmed Last Taken Type traMADol [Ultram 50 MG tab] 50 mg PO Q6HR PRN #15 tablet 11/23/16 Unknown Rx Fluticasone [Flonase] 1 spray NS QDAY #1 bottle 12/20/16 Unknown Rx Loratadine 10 mg PO DAILY #30 tablet 12/20/16 Unknown Rx Docusate Sodium [Colace] 100 mg PO BID PRN #60 capsule 03/07/17 Unknown Rx Amoxicillin/K Clav Tab [Augmentin 1 each PO Q12HR #20 tablet 06/02/17 Unknown Rx 500 MG TAB] Amoxicillin/K Clav Tab [Augmentin 1 tab PO Q12HR #20 tab 05/27/18 Unknown Rx 875MG TAB] Ibuprofen [Motrin 800 MG tab] 800 mg PO Q8HR PRN #30 tablet 05/27/18 Unknown Rx Fluticasone [Flonase] 1 spray NS QDAY 30 Days #1 bottle 10/13/18 Unknown Rx Loratadine 10 mg PO DAILY 30 Days #30 capsule 10/13/18 Unknown Rx Esomeprazole Magnesium [NexIUM] 40 mg PO QDAY 30 Days #30 11/28/18 Unknown Rx capsule. Magnesium Citrate [Citrate of 300 ml PO ONCE #1 solution 11/28/18 Unknown Rx Magnesia] Sennosides/Docusate [Senokot S] 1 each PO Q12HR 15 Days #30 tab 11/28/18 Unknown Rx ED Physical Exam - General Limitations: No Limitations General appearance: alert, in no apparent distress - Head Head exam: Present: atraumatic, normocephalic - Eye Eye exam: Present: normal appearance - ENT ENT exam: Present: mucous membranes moist - Neck Neck exam: Present: normal inspection - Respiratory Respiratory exam: Present: normal lung sounds bilaterally. Absent: respiratory distress - Cardiovascular Cardiovascular Exam: Present: regular rate, normal rhythm. Absent: systolic murmur, diastolic murmur, rubs, gallop - GI/Abdominal GI/Abdominal exam: Present: soft, normal bowel sounds. Absent: distended, tenderness, guarding - Extremities Exam Extremities exam: Present: normal inspection - Back Exam Back exam: Present: normal inspection - Neurological Exam Neurological exam: Present: alert, oriented X3 - Psychiatric Psychiatric exam: Present: normal affect, normal mood - Skin Skin exam: Present: warm, dry, intact, normal color. Absent: rash ED Course Vital Signs 11/28/18 11/28/18 19:59 20:03 Temperature 98.0 F 98 F Pulse Rate 106 H 94 H Respiratory 18 18 Rate Blood Pressure 130/83 Blood Pressure 130/83 [Left] O2 Sat by Pulse 100 100 Oximetry - Reevaluation(s) Reevaluation #1: Discussed all results with patient. Patient given diet and medication instructions. Discussed discharge instructions the patient. Patient voiced und erstanding of discharge instructions. Patient agrees to plan of care. 11/28/18 21:21 ED Medical Decision Making - Lab Data Result diagrams: 11/28/18 20:11 11/28/18 20:11 - Radiology Data Radiology results: report reviewed, image reviewed [place] PROCEDURE: XR ABDOMEN 2V TECHNIQUE: Supine and upright views of the abdomen HISTORY: constipation COMPARISONS: KUB abdomen 03/07/2017 . FINDINGS: The bowel gas pattern is nonspecific. No free air is identified. There is mild stool present in the colon. Soft tissues have no evidence for mass shadows or calcifications. There is a T-shaped IUD in the midline pelvis again noted. The bony structures are intact. IMPRESSION: Nonspecific, nonobstructive bowel gas pattern with no acute process noted. No change - Medical Decision Making Patient is a 23-year-old female that presents emergency room with epigastric pain times one week. Patient states she's had problems with constipation as well. Patient clinically stable for discharge. Patient's labs unremarkable. Patient since abdominal series negative. . Patient will be given Gastritis and constipation Treatment to include senna S, magnesium titrate, Nexium. Patient's clinical findings are consistent with gastritis and constipation. Patient given discharge instructions. Patient stable discharge. - Differential Diagnosis gerd. gastritis. constipation. Critical care attestation.: If time is entered above; I have spent that time in minutes in the direct care of this critically ill patient, excluding procedure time. ED Disposition Clinical Impression: Abdominal pain Qualifiers: Abdominal location: epigastric Qualified Code(s): R10.13 - Epigastric pain Constipation Qualifiers: Constipation type: unspecified constipation type Qualified Code(s): K59.00 - Constipation, unspecified GERD (gastroesophageal reflux disease) Qualifiers: Esophagitis presence: without esophagitis Qualified Code(s): K21.9 - Gastro- esophageal reflux disease without esophagitis Disposition: - TO HOME OR SELFCARE Is pt being admited?: No Does the pt Need Aspirin: No Condition: Stable Instructions: Gastritis (ED), Diet for Ulcers and Gastritis (ED), Gastroesophageal Reflux Disease (ED), Abdominal Pain (ED) Additional Instructions: Patient to follow-up with primary care in 2-3 days. Patient to follow up with zipper measurer in 2-3 days. Due to GERD and high fiber diet. Patient to return to ER if condition worsens. Patient to take meds as directed. Patient to increase water. Patient to rest. Patient to continue all meds. Prescriptions: Magnesium Citrate [Citrate of Magnesia] 300 ml PO ONCE #1 solution Esomeprazole Magnesium [NexIUM] 40 mg PO QDAY 30 Days #30 capsule. Sennosides/Docusate [Senokot S] 1 each PO Q12HR 15 Days #30 tab Referrals: NICKIE KARIMI MD [Primary Care Provider] - 2-3 Days Time of Disposition: 21:28
--- NOTE | 2018-11-28 21:32 | XRay Report ---
MA PROCEDURE: XR ABDOMEN 2V TECHNIQUE: Supine and upright views of the abdomen HISTORY: constipation COMPARISONS: KUB abdomen 03/07/2017 . FINDINGS: The bowel gas pattern is nonspecific. No free air is identified. There is mild stool present in the c olon. Soft tissues have no evidence for mass shadows or calcifications. There is a T-shaped IUD in the midl ine pelvis again noted. The bony structures are intact. IMPRESSION: Nonspecific, nonobstructive bowel gas pattern with no acute process noted. No change This document is electronically signed by Raysa Christensen MD., November 28 2018 09:30:56 PM ET
== END 2018-11-28 21:50 | disposition home or self-care (01) ==
LOC: ED 19:54
DX: K59.00 Constipation, unspecified (principal); K21.9 Gastro-esophageal reflux disease without esophagitis; F17.200 Nicotine dependence, unspecified, uncomplicated; F12.90 Cannabis use, unspecified, uncomplicated; Z79.899 Other long term (current) drug therapy
CPT/HCPCS: 36415; 74019; 80053; 81001; 83690; 84702; 85025; 99283

== ENCOUNTER 2019-02-16 10:43 | Emergency (ER) | payer MEDICAID ==
[2019-02-16 11:06] VITALS: BP 127/71
--- NOTE | 2019-02-16 11:23 | Emergency Department Report ---
ED ENT HPI - General Chief complaint: Sore Throat Stated complaint: SWOLLEN TONSILS/SINUS PRESSURE Time Seen by Provider: 02/16/19 11:15 Source: patient Mode of arrival: Ambulatory Limitations: No Limitations - History of Present Illness Initial comments: Patient is 23 years old female with history of tonsillar enlargement before. Patient presented to the ER complaining of sore throat since last night associated with nasal drainage. Patient has a muscle voice but denied any difficulty breathing or swallowing. Patient also denied any fever or chills. MD complaint: sore throat -: Last night Severity: moderate Severity scale (0 -10): 4 - Related Data Previous Rx's Medication Instructions Recorded Last Taken Type traMADol [Ultram 50 MG tab] 50 mg PO Q6HR PRN #15 tablet 11/23/16 Unknown Rx Fluticasone [Flonase] 1 spray NS QDAY #1 bottle 12/20/16 Unknown Rx Loratadine 10 mg PO DAILY #30 tablet 12/20/16 Unknown Rx Docusate Sodium [Colace] 100 mg PO BID PRN #60 capsule 03/07/17 Unknown Rx Amoxicillin/K Clav Tab [Augmentin 1 each PO Q12HR #20 tablet 06/02/17 Unknown Rx 500 MG TAB] Amoxicillin/K Clav Tab [Augmentin 1 tab PO Q12HR #20 tab 05/27/18 Unknown Rx 875MG TAB] Ibuprofen [Motrin 800 MG tab] 800 mg PO Q8HR PRN #30 tablet 05/27/18 Unknown Rx Fluticasone [Flonase] 1 spray NS QDAY 30 Days #1 bottle 10/13/18 Unknown Rx Loratadine 10 mg PO DAILY 30 Days #30 capsule 10/13/18 Unknown Rx Esomeprazole Magnesium [NexIUM] 40 mg PO QDAY 30 Days #30 11/28/18 Unknown Rx capsule Magnesium Citrate [Citrate of 300 ml PO ONCE #1 solution 11/28/18 Unknown Rx Magnesia] Sennosides/Docusate [Senokot S] 1 each PO Q12HR 15 Days #30 tab 11/28/18 Unknown Rx Allergies Allergy/AdvReac Type Severity Reaction Status Date / Time No Known Allergies Allergy Verified 11/25/18 18:21 ED Dental HPI - General Chief complaint: Sore Throat Stated complaint: SWOLLEN TONSILS/SINUS PRESSURE Time Seen by Provider: 08/26/19 11:15 Source: patient Mode of arrival: Ambulatory Limitations: No Limitations - Related Data Previous Rx's Medication Instructions Recorded Last Taken Type traMADol [Ultram 50 MG tab] 50 mg PO Q6HR PRN #15 tablet 11/23/16 Unknown Rx Fluticasone [Flonase] 1 spray NS QDAY #1 bottle 12/20/16 Unknown Rx Loratadine 10 mg PO DAILY #30 tablet 12/20/16 Unknown Rx Docusate Sodium [Colace] 100 mg PO BID PRN #60 capsule 03/07/17 Unknown Rx Amoxicillin/K Clav Tab [Augmentin 1 each PO Q12HR #20 tablet 06/02/17 Unknown Rx 500 MG TAB] Amoxicillin/K Clav Tab [Augmentin 1 tab PO Q12HR #20 tab 05/27/18 Unknown Rx 875MG TAB] Ibuprofen [Motrin 800 MG tab] 800 mg PO Q8HR PRN #30 tablet 05/27/18 Unknown Rx Fluticasone [Flonase] 1 spray NS QDAY 30 Days #1 bottle 10/13/18 Unknown Rx Loratadine 10 mg PO DAILY 30 Days #30 capsule 10/13/18 Unknown Rx Esomeprazole Magnesium [NexIUM] 40 mg PO QDAY 30 Days #30 11/28/18 Unknown Rx capsule. Magnesium Citrate [Citrate of 300 ml PO ONCE #1 solution 11/28/18 Unknown Rx Magnesia] Sennosides/Docusate [Senokot S] 1 each PO Q12HR 15 Days #30 tab 11/28/18 Unknown Rx Allergies Allergy/AdvReac Type Severity Reaction Status Date / Time No Known Allergies Allergy Verified 11/25/18 18:21 ED Review of Systems ROS: Stated complaint: SWOLLEN TONSILS/SINUS PRESSURE Other details as noted in HPI Comment: All other systems reviewed and negative Constitutional: denies: chills, fever ENT: throat pain Respiratory: denies: cough Cardiovascular: denies: chest pain Musculoskeletal: denies: back pain ED Past Medical Hx - Past Medical History Previous Medical History?: Yes Hx Hypertension: No Hx CVA: No Additional medical history: anemia - Surgical History Additional Surgical History: IUD - Social History Smoking Status: Never Smoker Substance Use Type: Alcohol - Medications Home Medications: Home Medications Medication Instructions Recorded Confirmed Last Taken Type traMADol [Ultram 50 MG tab] 50 mg PO Q6HR PRN #15 tablet 11/23/16 Unknown Rx Fluticasone [Flonase] 1 spray NS QDAY #1 bottle 12/20/16 Unknown Rx Loratadine 10 mg PO DAILY #30 tablet 12/20/16 Unknown Rx Docusate Sodium [Colace] 100 mg PO BID PRN #60 capsule 03/07/17 Unknown Rx Amoxicillin/K Clav Tab [Augmentin 1 each PO Q12HR #20 tablet 06/02/17 Unknown Rx 500 MG TAB] Amoxicillin/K Clav Tab [Augmentin 1 tab PO Q12HR #20 tab 05/27/18 Unknown Rx 875MG TAB] Ibuprofen [Motrin 800 MG tab] 800 mg PO Q8HR PRN #30 tablet 05/27/18 Unknown Rx Fluticasone [Flonase] 1 spray NS QDAY 30 Days #1 bottle 10/13/18 Unknown Rx Loratadine 10 mg PO DAILY 30 Days #30 capsule 10/13/18 Unknown Rx Esomeprazole Magnesium [NexIUM] 40 mg PO QDAY 30 Days #30 11/28/18 Unknown Rx capsule. Magnesium Citrate [Citrate of 300 ml PO ONCE #1 solution 11/28/18 Unknown Rx Magnesia] Sennosides/Docusate [Senokot S] 1 each PO Q12HR 15 Days #30 tab 11/28/18 Unknown Rx ED Physical Exam - General Limitations: No Limitations General appearance: alert, in no apparent distress - Head Head exam: Present: atraumatic, normocephalic, normal inspection - Eye Eye exam: Present: normal appearance - ENT ENT exam: Present: other (bilateral tonsillar enlargement.) - Neck Neck exam: Present: normal inspection, full ROM. Absent: tenderness, meningismus, lymphadenopathy, thyromegaly - Respiratory Respiratory exam: Present: normal lung sounds bilaterally - Cardiovascular Cardiovascular Exam: Present: regular rate, normal rhythm, normal heart sounds - GI/Abdominal GI/Abdominal exam: Present: soft, normal bowel sounds. Absent: distended, tenderness, guarding, rebound, rigid, organomegaly, mass, bruit, pulsatile mass, hernia - Extremities Exam Extremities exam: Present: normal inspection, full ROM, normal capillary refill. Absent: pedal edema, calf tenderness - Back Exam Back exam: Present: normal inspection, full ROM. Absent: CVA tenderness (L) - Neurological Exam Neurological exam: Present: alert, oriented X3 - Skin Skin exam: Present: warm, intact, normal color ED Course Vital Signs 02/16/19 11:05 Temperature 97.9 F Pulse Rate 99 H Respiratory 18 Rate Blood Pressure 127/71 O2 Sat by Pulse 96 Oximetry ED Medical Decision Making - Medical Decision Making Strep test is negative. Patient received Decadron 10 mg IM. Patient will be discharged on prednisone and Flonase. Patient advised to follow-up with ENT in the next 2-3 days and to return to the ER if symptoms are not improved. Critical care attestation.: If time is entered above; I have spent that time in minutes in the direct care of this critically ill patient, excluding procedure time. ED Disposition Clinical Impression: Tonsillitis Disposition: DC-01 TO HOME OR SELFCARE Is pt being admited?: No Condition: Stable Instructions: Tonsillitis (ED) Referrals: [facility] [Provider Group] - 3-5 Days
[2019-02-16] MEDS ORDERED: DECADRON IM ONE (11:26)
== END 2019-02-16 12:10 | disposition home or self-care (01) ==
LOC: ED 10:43
DX: J03.90 Acute tonsillitis, unspecified (principal); D64.9 Anemia, unspecified; Z79.899 Other long term (current) drug therapy
CPT/HCPCS: 87116; 87430; 96372; 99283; J1100